=== PATIENT | male | born 1985 | race Caucasian/White ===

== ENCOUNTER 2016-12-30 11:00 | Inpatient (IN) | payer OTHER ==
--- NOTE | ~2016-12-30 | PN ---
Unit #: [id number] #: [id number] Patient: SADIE JOHNSTON [id number] [facility] [address] [place] [address] [id number] I MR#: [id number] NAME: SADIE JOHNSTON ROOM: P206 Age: 31 Sex: M Admission Date: 12/30/2016 : 1985 Attending Physician: Cheikh Amador M.D. Admitting Physician: Cheikh Amador M.D. Primary Care Physician: Kevin Donovan M.D. [facility] PROGRESS NOTES DATE 01/02/2017 DISCUSSION SUBJECTIVE UPDATE This is a 31-year-old white male, in the hospital with ongoing detox issues. The patient reports feeling "bad today" complaining of aches and pains, sleep disturbance, GI upset, diarrhea, restless leg, headache. He continues to psychomotor really slow as his detox progresses which I am assuming is him coming off of the amphetamines, stimulants but he reports, overall, that he does feel calmer even though he feels sicker physically. Patient compliant with medications but still also focused on his need pain despite being on Mobic and being ambulatory and social at times per staff but nothing new. MENTAL STATUS EXAMINATION General appearance is a limitedly groomed white male who appears older than stated age, with a cline, improved cooperation and improved eye contact. Speech was clear and coherent and more paucity. Mood was dysphoric with a constricted affect. Thought process and content are grossly organized and linear. No overt psychosis, no SI, and no HI reported or elicited. The patient was goal-oriented. The patient's memory was grossly intact. Associations were normal. Cognitive functioning was at baseline. Alert and oriented x4. Insight and judgment improving. ASSESSMENT AND RECOMMENDATIONS 1. Will continue the patient's admission for safety and stabilization for ongoing detox issues with symptoms as noted above. The patient, overall, is making progress but still having active symptoms and being monitored in a safe, controlled environment. 2. Patient urged to be compliant with medications especially to help with the diarrhea for which he was in agreement. We will continue to monitor his stabilization proceeds. Dictated by... Cheikh Amador M.D. SB/rachel Unit #: [id number] #: [id number] Patient: SADIE JOHNSTON TD: 01/04/2017 05:31 JOB #: [id number] [facility] PROGRESS NOTES Page 1 of 1 X Cheikh Amador MD PROGRESS NOTE
--- NOTE | ~2016-12-30 | PA ---
Unit #: [id number] #: [id number] Patient: SADIE JOHNSTON [id number] [place] [address] [id number] I MR#: [id number] NAME: SADIE JOHNSTON ROOM: P206 Age: 31 Sex: M Admission Date: 12/30/2016 : 1985 Date of Assessment: Attending Physician: Cheikh Amador M.D. Admitting Physician: Cheikh Amador M.D. Primary Care Physician: Kevin Donovan M.D. PSYCHIATRIC ASSESSMENT LOCATION [facility] [address], room #206, bed #1. DATE OF SERVICE 12/31/2016. INFORMANTS The patient and chart, both seem reliable. CHIEF COMPLAINT "I got to detox per my supply officer." HISTORY OF PRESENT ILLNESS This is a 31-year-old white male, referred to here from his own area of [place] because of continued alcohol dependency, amphetamine abuse, and Subutex abuse by the request of his ground nuclear weapons assembly officer. The patient apparently got out of detention approximately 8 to 9 days ago and he has been drinking 2 pints of alcohol a day since as well as frequent amphetamine and Subutex use during the same period. The patient seems somewhat psychomotor agitated, tremorous, but focused and pleasant. Denied any SI or HI, or mood issues other than some anxiety. He reports he was heavily drinking for about a year before going into detention, where he was there for about 6 months and said he was released as noted above. The patient seems focused on treatment. He denies any history of psychosis, but has had history of seizures, it is unclear whether it was alcohol related or from amphetamine abuse, he was not sure even. Denied any other drugs of abuse. Denied any other psychiatric issues at this time, but does have a history of depression. PAST PSYCHIATRIC HISTORY As noted above in terms of history of depression, treated outpatient, but no inpatient care. No history of SI, HI, or psychosis. No current ongoing issues. FAMILY HISTORY Significant for mom with bipolar disorder, as well as mood disorders in one brother and chemical dependency issues with another. SOCIAL HISTORY The patient is single, on parole as noted above, has a single child who lives with the child's mother, high school degree. MEDICAL HISTORY Unit #: [id number] #: [id number] Patient: SADIE JOHNSTON Nothing of significance beyond a chronic knee injury issue that he was complaining of with me. MEDICATION HISTORY None. ALLERGIES Include clindamycin currently causes hives. SUBSTANCE ABUSE HISTORY As noted above. No overt chemical dependence treatment beyond detention. Does have history of seizures, but again unclear of nature and correlation. No history of overt IV drug use per the patient. MENTAL STATUS EXAMINATION General appearance; this is a limitedly groomed white male, appears somewhat older than stated age. Psychomotor agitation noted as above, tremors. Speech was clear and coherent. Mood was anxious with a labile affect. Thought process and content were grossly organized and linear. No overt evidence of psychosis. No SI, no HI reported or elicited. The patient's memory was grossly intact. Associations were normal. Cognitive function was at baseline. Alert and oriented x4. Insight and judgment were poor. ASSETS AND LIABILITIES Assets include support through ground nuclear weapons assembly officer, and family in his home area. Liabilities include being on parole, unemployed, ongoing substance abuse problems. ADMITTING DIAGNOSES 1. Alcohol dependency with withdrawal. 2. Amphetamine abuse. 3. Subutex abuse. 4. Knee pain. PSYCHIATRIC PLAN To continue the patient's admission for safety and stabilization and given he has been drinking 2 pints a day of alcohol, will be placed on alcohol withdrawal protocol and monitored accordingly. Symptoms seem to be primarily fixated around alcohol withdrawal. The patient also have a nurse practitioner consult to see for his knee pain. Ibuprofen seems to be helping, but we will evaluate and make sure there is not more extensive damage present. Treatment goal will be resolution of all symptoms in safe controlled environment with discharge planning to apparently to involve a substance abuse program in his home area already established by his ground nuclear weapons assembly officer upon completion of detox. Estimated length of stay approximately 4 to 5 days depending on the patient's progress and response to treatment. Dictated by... Cheikh Amador M.D. DULCE/mary TD: 01/01/2017 02:02 JOB #: [id number] Unit #: [id number] #: [id number] Patient: SADIE JOHNSTON PSYCHIATRIC ASSESSMENT Page 1 of 1 X Cheikh Amador MD PSYCHIATRIC ASSESSMENT
--- NOTE | ~2016-12-30 | HP ---
Unit #: [id number] #: [id number] Patient: SADIE JOHNSTON [id number] [place] [address] [id number] I MR#: [id number] NAME: SADIE JOHNSTON ROOM: P206 Age: 31 Sex: M Admission Date: 12/30/2016 : 1985 Attending Physician: Cheikh Amador M.D. Admitting Physician: Cheikh Amador M.D. Primary Care Physician: Kevin Donovan M.D. HISTORY AND PHYSICAL HISTORY OF PRESENT ILLNESS Sadie is a 31-year-old male admitted on 12/30/[address] [place] [address] for detox from meth and Suboxone. PAST MEDICAL HISTORY GERD. PAST SURGICAL HISTORY None. SOCIAL HISTORY Smokes 1 pack of cigarettes daily. No alcohol use. Daily use of meth and Suboxone. He is currently single and living with his mother and his brother. FAMILY HISTORY Noncontributory. REVIEW OF SYSTEMS CONSTITUTIONAL: No fever or chills. HEENT: Denies any sore throat, ear pain or runny nose. CARDIOVASCULAR: Denies chest pain, irregular heart rhythm or palpitations. CHEST: Denies shortness of breath or cough. No hemoptysis. GASTROINTESTINAL: Denies nausea, vomiting, diarrhea or chronic constipation. ENDOCRINE: Denies history of increased thirst or urination. No recent significant weight loss or gain. GENITOURINARY: Denies dysuria, frequency, or hematuria. SKIN: Denies any rashes. HEMATOLOGIC: Denies history of increased bleeding or bruising. MUSCULOSKELETAL: Denies any hot, swollen joints. No generalized muscle pain. The patient complains of right knee pain. NEUROLOGIC: Denies problems with vision or speech. No frequent, severe headaches. No numbness, tingling or weakness in any extremities. Denies loss of bladder or bowel control. CURRENT MEDICATIONS Zyprexa. ALLERGIES Clindamycin. PHYSICAL EXAMINATION Unit #: [id number] #: [id number] Patient: SADIE JOHNSTON GENERAL: Alert, oriented, no acute distress. VITAL SIGNS: Blood pressure 142/88, heart rate 100, respirations 18, and temperature 98.3. HEIGHT: 6 feet 3. WEIGHT: 215 pounds. SKIN: Warm, dry. No rashes or lesions, track roche, cuts, etc. HEENT: Normocephalic. TMs not viewed. Oronasal passages clear. Conjunctivae clear. PERRLA. EOM is intact. NECK: No lymphadenopathy or thyromegaly. HEART: Regular rate and rhythm. No murmur, gallop, or rub. LUNGS: Clear to auscultation bilaterally. ABDOMEN: Soft, nontender without palpable masses or hepatosplenomegaly. : Not assessed. EXTREMITIES: No evidence of cyanosis, clubbing, or edema. Moves all extremities independently without obvious deficit. NEUROLOGICAL: Grossly within normal limits. Cranial Nerves: II: Visual eubanks are intact. III, IV AND : Extraocular movements are intact. Pupils are equal, round and reactive to light. V: Facial sensation is grossly normal. VII: Facial movements and expression are normal. VIII: Auditory acuity grossly intact. IX, X: Uvula is midline. Phonation is normal. XI: Patient shrugs shoulders and turns head normally. XII: Tongue protrudes in the midline. Sensory and Motor Function: Sensory and motor sensation is grossly normal. Motor: moves all extremities well. Coordination: Gait is normal. Deep Tendon Reflexes: Intact. IMPRESSION 1. Psychiatric admission. 2. Gastroesophageal reflux disease. RECOMMENDATIONS PSYCHIATRIC: Per psychiatrist. MEDICAL: No contraindication to participate in this facility's activities. MEDICAL PROGNOSIS Good. MEDICAL CONDITION Stable. Dictated by..July Acuna/anika TD: 01/01/2017 07:11 JOB #: [id number] Unit #: [id number] #: [id number] Patient: SADIE JOHNSTON HISTORY AND PHYSICAL Page 1 of 1 X SHANTELLE LOMAS APRN HISTORY AND PHYSICAL
--- NOTE | ~2016-12-30 | PN ---
Unit #: [id number] #: [id number] Patient: SADIE JOHNSTON [id number] [place] [address] [id number] I MR#: [id number] NAME: SADIE JOHNSTON ROOM: P206 Age: 31 Sex: M Admission Date: 12/30/2016 : 1985 Attending Physician: Cheikh Amador M.D. Admitting Physician: Cheikh Amador M.D. Primary Care Physician: Kevin Donovan M.D. [facility] PROGRESS NOTES DATE OF SERVICE: 01/01/2017 LOCATION [facility], [address] [place] [address], room #206, bed #1. SUBJECTIVE This is a 31-year-old white male who is here with issues of detox and dependency issues. The patient is reporting still feeling very fatigued, aches and pains with sleep, and GI upset. He did report feeling calmer today, though he does have a headache. The patient with less psychomotor agitation today compared to yesterday. No active SI or HI. The patient seemed calmer today, overall compliant with care per staff. MENTAL STATUS EXAMINATION General appearance; this is a limitedly groomed white male, appears somewhat older than stated age. Good eye contact today with decreased psychomotor agitation. Speech was clear and coherent, more appropriate with pressured. Mood was dysphoric with a constricted affect. Thought process and content are grossly organized and linear. No overt evidence of psychosis. No SI. No HI reported or elicited. The patient's memory was grossly intact. Associations were normal. Cognitive function was at baseline. He was alert and oriented x4. Insight and judgment are limited, but improving. RECOMMENDATIONS We would continue the patient's admission for ongoing detox symptoms as noted above. Overall, the patient is making some progress with less psychomotor agitation today, but overall still in the midst of detox issues. We will continue to monitor accordingly more towards disposition as care progresses. Dictated by... Cheikh Amador M.D. SB/modl TD: 01/02/2017 13:24 JOB #: [id number] Unit #: [id number] #: [id number] Patient: SADIE JOHNSTON [facility] PROGRESS NOTES Page 1 of 1 X Cheikh Amador MD PROGRESS NOTE
--- NOTE | ~2016-12-30 | CO ---
Unit #: [id number] #: [id number] Patient: SADIE JOHNSTON [id number] [place] [address] [id number] I MR#: [id number] NAME: SADIE JOHNSTON ROOM: P206 Age: 31 Sex: M Admission Date: 12/30/2016 : 1985 Attending Physician: Cheikh Amador M.D. Primary Care Physician: Kevin Donovan M.D. Consultation Date: 12/31/2016 CONSULTATION REPORT HISTORY OF PRESENT ILLNESS Sadie has complaints of left knee pain that initially started when he was 14 years old after he hyperextended his knee and fractured his tibia. He has occasional pain on and off since then, however, about 2 weeks ago, he was exercising and while he was doing squats, he twisted his knee and now is experiencing popping sounds and increased pain especially with weight bearing. He has been taking that ibuprofen which seems to help. He also has complaints of a sore on his face, caused by picking while he is using drugs. He would like antibiotic cream for that. No other complaints. PHYSICAL EXAMINATION CARDIAC: Regular rate and rhythm. No murmurs, gallops, or rubs. RESPIRATORY: Clear to auscultation bilaterally. SKIN: Sores on face near right side of lip and upper left arm. MUSCULOSKELETAL: Full range of motion, left knee. No tenderness to palpation. No redness or edema. ASSESSMENT AND PLAN 1. Left knee pain. We will begin meloxicam 15 mg p.o. daily and discontinue ibuprofen. We will also begin ice t.i.d. 2. Skin sore. We will begin bacitracin 1% ointment b.i.d. Dictated by... Fabienne Kaplan A.P.R.N. for Mary Anne White/mary TD: 01/01/2017 00:08 JOB #: [id number] CONSULTATION REPORT Page 1 of 1 X FABIENNE LOMAS APRN CONSULTATION REPORT
--- NOTE | ~2016-12-30 | PN ---
Unit #: [id number] #: [id number] Patient: SADIE JOHNSTON [id number] [facility] [address] [place] [address] [id number] I MR#: [id number] NAME: SADIE JOHNSTON ROOM: P206 Age: 31 Sex: M Admission Date: 12/30/2016 : 1985 Attending Physician: Cheikh Amador M.D. Admitting Physician: Cheikh Amador M.D. Primary Care Physician: Kevin Donovan M.D. [facility] PROGRESS NOTES DATE 01/03/2017 SUBJECTIVE UPDATE This is a 31-year-old male who is here with ongoing issues with polysubstance dependency and withdrawal. Patient reports detox symptoms are continuing to improve. He still has issues with poor energy, aches and pains, fatigue, some sleep disturbance and dysphoria but he does seem more fixated on his knee pain which is chronic even despite the Mobic addition by the nurse practitioner. Patient continues to do some med seeking in terms of Neurontin and other drugs as alternatives. There is no evidence of inflammation or any kind of trauma to the knee itself and patient has been seen up and about on the unit per staff again. MENTAL STATUS EXAMINATION General appearance is a limitedly groomed white male appears somewhat older than his stated age, fairly cooperative, responsive with good eye contact. Speech was clear and coherent, normal prosody. Mood was somewhat dysphoric with a constricted affect. Thought process and content are grossly organized and linear. No overt evidence of psychosis. No SI, no HI reported or elicited. Patient's memory was grossly intact. Associations were normal. Cognitive functioning was at baseline. He was alert and oriented times four. Insight and judgement is limited but improving. RECOMMENDATIONS Will continue patient's admission for residual detox symptoms as noted above. Most likely disposition will happen in the next day or two should progress be continued. Overall, patient showing good progress. Some concern of med seeking behavior but regardless is progressing well. Boundaries are set in place. Dictated by... Cheikh Amador M.D. DULCE/luis TD: 01/04/2017 20:19 JOB #: [id number] Unit #: [id number] #: [id number] Patient: PRESTONSADIE PROGRESS NOTES Page 1 of 1 X Cheikh Amador MD PROGRESS NOTE
--- NOTE | ~2016-12-30 | DS ---
Unit #: [id number] #: [id number] Patient: SADIE JOHNSTON [id number] [place] [address] [id number] I MR#: [id number] NAME: SADIE JOHNSTON ROOM: P206 Age: 31 Sex: M Admission Date: 12/30/2016 : 1985 Discharge Date: 01/03/2017 Attending Physician: Cheikh Amador M.D. Primary Care Physician: Kevin Donovan M.D. DISCHARGE SUMMARY REASON FOR ADMISSION Combination of alcohol dependency, amphetamine abuse, and Subutex abuse. The patient had been referred as requested by his photographic intelligence officer. DIAGNOSTIC STUDIES PERTINENT LABORATORY DATA: The patient had a routine blood work done which included a CMP that was grossly within normal parameters with the exception of glucose of 119, albumin of 3.4, AST of 50, and ALT of 57. CBC was grossly within normal parameters completely. RPR was nonreactive. Urine toxicology for benzos and amphetamines. Urinalysis show only 1+ urobilinogen. HOSPITAL COURSE The patient was admitted for safety and stabilization for ongoing issues with primarily alcohol detox issues. The patient complains of symptoms of aches and pains from her sweat, sleep disturbance, mood problems, upset stomach, and headaches. He also had chronic issues with his left knee which is strained. The patient tolerated the detox process well, and symptoms had fairly much resolved by the time of discharge. He also was seen by a nurse practitioner for medical evaluation of his knee and was placed on Mobic at that time. Over the course of the hospitalization, the patient gradually improved with groups and activities as directed towards the end of admission. The patient was still having some residual symptoms at the time of discharge, but his photographic intelligence officer arrived with a plan for the patient to go to residential program. Since he was not suicidal and homicidal and actually was showing (1) __ progress, the patient was felt appropriate for release with plan for residential treatment. The patient agreed. DISCHARGE DIAGNOSES 1. Alcohol dependency with withdrawal. 2. Amphetamine abuse. 3. Opiate dependence. 4. Acute and chronic knee pain. DISCHARGE INSTRUCTIONS Discharge followup will be per photographic intelligence officer with residential treatment program in his home area of [place]. DISCHARGE MEDICATIONS None. CONDITION AT DISCHARGE Improving. Unit #: [id number] #: [id number] Patient: SADIE JOHNSTON PROGNOSIS Guarded due to the patient's history of (2) __ abuse of substances. DIET Regular. ACTIVITY As tolerated with sobriety encouraged with Dr. Amador. Dictated by... Cheikh Amador M.D. DULCE/anika TD: 01/04/2017 09:08 JOB #: [id number] DISCHARGE SUMMARY Page 1 of 1 X Cheikh Amador MD X DISCHARGE SUMMARY
[2017-01-01 13:50] LABS: BASOPHIL% 0.4 % (0-2.5); EOSINOPHIL# 0.1 X10e3 (0-0.7); EOSINOPHIL% 1.8 % (0.0-7.0); HEMATOCRIT 39.8 % (38.0-50.0); HEMOGLOBIN 13.2 gm/dL (13.0-16.0); LYMPHOCYTE# 1.4 X10e3 (1.0-3.5); LYMPHOCYTE% 32.5 % (17.0-45.0); MEAN CELL VOLUME 90.2 FL (83-96); MEAN CORPUSCULAR HGB CONC 33.2 g/dL (30-36); MEAN PLATELET VOLUME 8.5 FL (6.5-11.5); MONOCYTE# 0.3 X10e3 (0-1.0); MONOCYTE% 7.2 % (3.0-12.0); NEUTROPHIL# 2.6 X10e3 (1.5-7.1); NEUTROPHIL% 58.1 % (40-75); PLATELET COUNT 197 X10e3 (140-420); RED BLOOD COUNT 4.41 X10e (3.90-5.60); RED CELL DISTRIBUTION WIDTH 13.1 % (11.0-15.5); WHITE BLOOD COUNT 4.4 X10e3 (4.0-10.5)
[2017-01-01 13:55] LABS: DIFF IND NO
[2017-01-01 14:04] LABS: ALBUMIN SERUM 3.4 g/dL (3.5-5.0); BILIRUBIN,TOTAL 0.4 mg/dL (0.2-2.0); CALCIUM SERUM 8.4 mg/dL (8.4-10.2); CREATININE SERUM 0.7 mg/dL (0.6-1.4); GLOM FILT RATE Estimated 125.8 mL/min (>60); POTASSIUM 3.9 mmol/L (3.5-5.1); PROTEIN TOTAL SERUM 6.1 g/dL (6.0-8.3)
[2017-01-03 10:09] LABS: URINE APPEARANCE CLEAR; URINE BILIRUBIN NEG (NEG); URINE BLOOD NEG (NEG); URINE COLOR DK YELLOW; URINE GLUCOSE NEG (NEG); URINE KETONE NEG (NEG); URINE LEUKOCYTE ESTERASE NEG (NEG); URINE NITRATE NEG (NEG); URINE PH 5.5 (5-8); URINE PROTEIN NEG (NEG)
[2017-01-03 11:28] LABS: AMPHETAMINE POS (NEG); BARBITURATES NEG (NEG); BENZODIAZEPINES POS (NEG); COCAINE NEG (NEG); MARIJUANA NEG (NEG); OPIATES NEG (NEG); TRICYCLIC ANTIDEPRESSANTS NEG (NEG); U METHADONE NEG (NEG)
== END 2017-01-03 12:45 | disposition home or self-care (01) | DRG 897 ==
LOC: P2S 14:59
PROVIDERS: Psychiatry & Neurology Psychiatry
PROC: HZ2ZZZZ Detoxification Services for Substance Abuse Treatment (ICD-10-PCS; principal; 2016-12-30)
DX: F10.230 Alcohol dependence with withdrawal, uncomplicated (principal); F11.10 Opioid abuse, uncomplicated; F15.90 Other stimulant use, unspecified, uncomplicated; Z81.4 Family history of other substance abuse and dependence; Z81.8 Family history of other mental and behavioral disorders; Z88.1 Allergy status to other antibiotic agents; M25.562 Pain in left knee; K21.9 Gastro-esophageal reflux disease without esophagitis; F17.210 Nicotine dependence, cigarettes, uncomplicated
CPT/HCPCS: 80053; 80307; 81003; 85025; 86592